=== PATIENT | male | born 1950 | race Caucasian/White ===

== ENCOUNTER 2019-12-04 22:17 | Emergency (ER) | payer MEDICARE, BC ==
--- OUTSIDE RECORDS SUMMARY | 2019-12-04 22:34 | XMS REPORT | Continuity of Care Document ---
:1950 External Reference #:[id number] Author Name Mickey Wells D.O. 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 Onset: 07/09/2003 Benign prostatic hypertrophy without Luis Enrique Mejia M.D. Onset: 2004 outflow obstruction Impotence of organic origin Luis Enrique Mejia M.D. Onset: 02/03/2005 Diverticular disease of colon Luis Enrique Mejia M.D. Onset: 06/24/2006 Type 2 diabetes mellitus Luis Enrique Mejia M.D. Onset: 03/25/2012 Social History Type Date Description Comments Sex Unknown Tobacco Use Start: Unknown current cigarette smoker 5-6 cig/ day Smoking Status Reviewed: 09/01/19 current cigarette smoker 5-6 cig/ day Tobacco Use Start: Unknown Currently Smokes an Occasional Cigar Tobacco Use Start: Unknown Patient is a current smoker, smokes cigar only some days Allergies, Adverse Reactions, Alerts Description No Known Drug Allergies Medications Active Medications SIG Qnty Indications Ordering Provider Date Tamsulosin HCL 1 by mouth every 30caps Mickey Wells, 11/29/2019 0.4mg day D.O. Capsules Aspirin 81 1 by mouth every 90tabs Mickey Wells, 09/01/2019 [address]mg day D[address]O. Tablets DR Isabel take 1 tablet by 90tabs E11.9 Mickey Wells, 06/09/2019 100mg Tablets mouth daily for D.O. type 2 diabetes Metformin HCL ER take 2 tablets by 180tabs Mickey Wells, 06/09/2019 (Mod) mouth daily with D.O. 1000mg Tablets evening meal for ER 24HR type 2 diabetes Crestor take one tablet 90tabs E11.9 Mickey Wells, 03/25/2012 40mg Tablets by mouth every D.O. day Immunizations CPT Code Status Date Vaccine Lot # [id number] Given 09/01/2019 Influenza Vaccine, Inactivated, Subunit, [id number] Adjuvanted, For Intrmusc 60557 Given 10/04/2018 Influenza Vaccine, Inactivated, Subunit, [id number] Adjuvanted, For Intrmusc 72291 Given 07/04/2018 Shingrix Zoster (Shingles) Vaccine (HZV) [id number] Recomb,Subnit,Adjuvanted 13284 Given 05/09/2018 Shingrix Zoster (Shingles) Vaccine (HZV) [id number] Recomb,Subnit,Adjuvanted 07969 Given 08/20/2017 Influenza Virus Vaccine, Quadrivalent, Split, [id number] Preservative Free 63022 Given 04/13/2017 Pneumococcal Immunization [id number] 68396 Given 09/21/2016 Influenza Virus Vaccine, Quadrivalent, Split, [id number] Preservative Free 86793 Given 07/04/2015 Prevnar 13 [id number] 88181 Given 11/13/2013 Flu, Split Virus 3Yrs [id number] 37693 Given 03/25/2012 Pneumococcal Immunization [id number] 45582 Given 02/13/2011 Adacel or Boostrix, TDaP [id number] 71053 Given 02/13/2011 Zostavax [id number] 28268 Given 10/18/2006 Td Immunization [id number] U-Flu Refused 10/04/2015 Influenza,Unspecified [id number] Refused 07/04/2015 Flu, Split Virus 3Yrs 88025 Refused 08/20/2011 Flu, Split Virus 3Yrs 63832 Refused 09/11/2010 Flu, Split Virus 3Yrs 71104 Refused 09/06/2009 Flu, Split Virus 3Yrs Vital Signs Date Vital Result Comment 11/29/2019 3:05pm BP Systolic 124 mmHg BP Diastolic 80 mmHg Height 67.50 inches 5'7.50" Weight 167.00 lb BMI (Body Mass Index) 25.8 kg/m2 09/01/2019 9:34am BP Systolic 126 mmHg BP Diastolic 80 mmHg Height 67.75 inches 5'7.75" Weight 168.00 lb BMI (Body Mass Index) 25.7 kg/m2 Results Test Acquired Date Facility Test Result H/L [place] Note Laboratory test finding 09/01/2019 In House Hemoglobin A1c 6.2 Procedures Date Code Description Status 09/01/2019 242387400 Diabetic Foot Exam Completed 12/23/2018 557966578 Diabetic Retinal Eye Exam Completed Medical Devices Description No Information Available Encounters Description No Information Available Assessments Date Code Description Provider 11/29/2019 N40.0 Benign prostatic hyperplasia without lower Mickey Wells D.O. urinary tract sym 11/29/2019 Z68.25 Body mass index (BMI) 25.0-25.9, adult Mickey Wells D.O. 09/01/2019 Z68.25 Body mass index (BMI) 25.0-25.9, adult Mickey Wells D.O. 09/01/2019 E11.9 Type 2 diabetes mellitus without Mickey Wells D.O. complications 09/01/2019 F17.210 Nicotine dependence, cigarettes, Mickey Wells D.O. uncomplicated 09/01/2019 E78.00 Pure hypercholesterolemia, unspecified Mickey Wells D.O. 09/01/2019 Z79.84 [facility] (current) use of oral hypoglycemic Mickey Wells D.O. drugs 09/01/2019 N52.9 Male erectile dysfunction, unspecified Mickey Wells D.O. 09/01/2019 N40.0 Benign prostatic hyperplasia without lower Mickey Wells D.O. urinary tract sym 09/01/2019 Z80.42 Family history of malignant neoplasm of Mickey Wells D.O. prostate 09/01/2019 Z00.00 Encounter for general adult medical Mickey Wells D.O. examination without abnormal findings 09/01/2019 Z23 Encounter for immunization Mickey Wells D.O. Plan of Treatment Future Appointment(s):01/02/2020 9:45 am - Mickey Wells D.O. at [facility]/29/2019 - Mickey Wells D.O.N40.0 Benign prostatic hyperplasia without lower urinary tract symComments:referral made today. Discussed removal of catheter. Toy elects to leave it in place until urology visit.Z68.25 Body mass index (BMI) 25.0-25.9, adult Functional Status Description No Information Available Mental Status Description No Information Available Referrals Refer to Reason for Referral Status Appt Date Leland Zuñiga MD Acute urinary retention on vacation with Created catheter placement. No discomfort sincne. [address] [facility] [facility] [place] [address] [place] [address] [phone]
--- NOTE | 2019-12-04 23:04 | ED ---
GI/ HPI - HPI Summary HPI Summary: Patient with history of having urinary catheter in place for 9 days due to acute urinary retention, with catheter removed today by Dr. Cunha's office complains of return of urinary retention. Patient states he had not urinated since 2:30 PM, had abdominal pain. Patient drove himself to the ED, has urinated 4 times since arrival in the ED with near normal urine flow. Denies fever, cough, sore throat, CP, SOB, N/C/D, change in BM, penile or testicular symptoms. Medical history is DM, HDL. Urologist Dr. Cunha - History of Current Complaint Chief Complaint: EDUrogenitalProblems Time Seen by Provider: 12/04/19 23:01 Stated Complaint: TROUBLE URINATING PER PT Hx Obtained From: Patient Onset/Duration: Started Hours Ago Timing: Constant Severity: Moderate Current Severity: Moderate Pain Intensity: 7 Location of Pain: Suprapubic Pain Characteristics: Cramping, Aching Associated Signs and Symptoms: Positive: Dysuria - Allergy/Home Medications Allergies/Adverse Reactions: Allergies Allergy/AdvReac Type Severity Reaction Status Date / Time No Known Allergies Allergy Verified 12/04/19 22:23 PMH/Surg Hx/FS Hx/Imm Hx Endocrine/Hematology History: Denies: Hx Anticoagulant Therapy Cardiovascular History: Denies: Hx Pacemaker/ICD History: Denies: Hx Dialysis Sensory History: Denies: Hx Eye Prosthesis Opthamlomology History: Denies: Hx Legally Blind EENT History: Denies: Hx Deafness Neurological History: Denies: Hx Dementia Infectious Disease History: No Infectious Disease History: Denies: Traveled Outside the [place] in Last 30 Days - Family History Known Family History: Positive: Non-Contributory - Social History Alcohol Use: Daily Hx Substance Use: No Hx Tobacco Use: No Review of Systems Constitutional: Negative Eyes: Negative ENT: Negative Cardiovascular: Negative Respiratory: Negative Gastrointestinal: Negative Positive: dysuria Musculoskeletal: Negative Skin: Negative Neurological: Negative Psychological: Normal All Other Systems Reviewed And Are Negative: Yes Physical Exam Triage Information Reviewed: Yes Vital Signs On Initial Exam: Initial Vitals Temp Pulse Resp BP Pulse Ox 98.1 F 87 15 161/85 97 12/04/19 22:21 12/04/19 22:21 12/04/19 22:21 12/04/19 22:21 12/04/19 22:21 Vital Signs Reviewed: Yes Appearance: Positive: Well-Appearing Skin: Positive: Warm Head/Face: Positive: Normal Head/Face Inspection Eyes: Positive: Normal Neck: Positive: Supple Respiratory/Lung Sounds: Positive: Clear to Auscultation Cardiovascular: Positive: Normal Abdomen Description: Positive: Nontender Musculoskeletal: Positive: Normal Neurological: Positive: Normal Psychiatric: Positive: Normal AVPU Assessment: Alert - [place] Coma Scale Best Eye Response: 4 - Spontaneous Best Motor Response: 6 - Obeys Commands Best Verbal Response: 5 - Oriented Coma Scale Total: 15 Procedures - Sedation Patient Received Moderate/Deep Sedation with Procedure: No Diagnostics - Vital Signs Vital Signs Temp Pulse Resp BP Pulse Ox 12/04/19 22:21 98.1 F 87 15 161/85 97 - Laboratory Lab Statement: Any lab studies that have been ordered have been reviewed, and results considered in the medical decision making process. GIGU Course/Dx - Course Course Of Treatment: Patient with history of having urinary catheter in place for 9 days due to acute urinary retention, with catheter removed today by Dr. Cunha's office complains of return of urinary retention. Patient states he had not urinated since 2:30 PM, had abdominal pain. Patient drove himself to the ED , has urinated 4 times since arrival in the ED with near normal urine flow. Denies fever, cough, sore throat, CP, SOB, N/C/D, change in BM, penile or testicular symptoms. Medical history is DM, HDL. Urologist Dr. Cunha. Vital signs within normal limits. Patient urinated 5 times here in the ED. 220 mL on bladder scan up. Patient has no residual pain. Patient prefers to go home without urinary catheter. Has follow-up appointment with Dr. Cunha tomorrow morning at 8 AM. Return for any worsening symptoms. - Diagnoses Provider Diagnoses: Acute urinary retention Discharge ED - Sign-Out/Discharge Documenting (check all that apply): Patient Departure - Discharge Plan Condition: Stable Disposition: HOME Patient Education Materials: Urinary Retention in Men (ED) Referrals: Mickey Wells DO [Primary Care Provider] - Additional Instructions: Follow-up with Dr. Cunha at ppointment at 8 AM. Return to the ED for any new or worsening symptoms. - Billing Disposition and Condition Condition: STABLE Disposition: Home
[2019-12-05 00:18] VITALS: BP 124/74
== END 2019-12-05 00:18 | disposition home or self-care (01) ==
LOC: ED 22:17
DX: R33.9 Retention of urine, unspecified (principal); R30.0 Dysuria; E78.5 Hyperlipidemia, unspecified; E11.9 Type 2 diabetes mellitus without complications
CPT/HCPCS: 99282